=== PATIENT | female | born 1945 | race Caucasian/White ===

== ENCOUNTER 2018-09-16 17:43 | Emergency (ER) | payer OTHER, MEDICARE ==
[2018-09-16 17:50] VITALS: PULSE 84; TEMP 97.4; BMI 25.2
--- NOTE | 2018-09-16 18:05 | PDOC ---
History of Present Illness - General Chief Complaint: Rectal Bleed Stated Complaint: BLOOD IN STOOL Time Seen by Provider: 09/16/18 18:02 History Source: Patient Exam Limitations: No Limitations - History of Present Illness Initial Comments: 09/16/18 18:02 72 year old female with PMH HTN, hypothyroidism, atrial fibrillation (on Xarelto ), hemorrhoids presented to ED for blood in urine. She stated she had one episode today. She denied fever, chills, nausea, vomiting, diarrhea, blood in stool, chest pain, shortness of breath, vaginal bleeding. Past History - Past Medical History Allergies/Adverse Reactions: Allergies Allergy/AdvReac Type Severity Reaction Status Date / Time kiwi Allergy Verified 09/16/18 17:44 UNCODED ALLERGY SELECTION Allergy Swelling Verified 09/16/18 17:44 NOVACAINE Allergy Severe Uncoded 09/16/18 17:44 Home Medications: Ambulatory Orders Levothyroxine [Synthroid -] 25 mcg PO ACBK #0 tablet 03/28/12 Pantoprazole Sodium [Protonix -] 40 mg PO DAILY #0 tablet.ec 03/28/12 Potassium Chloride [K-Dur -] 20 meq PO DAILY #0 tablet.er 03/28/12 Ramipril [Altace] 2.5 mg PO DAILY #0 capsule 03/28/12 Rivaroxaban [Xarelto -] 20 mg PO DAILY #0 tablet 03/28/12 Digoxin [Lanoxin -] 0.125 mg PO DAILY 09/16/18 Metoprolol Succinate [Toprol XL -] 50 mg PO DAILY 09/16/18 Cardiac Disorders: Yes (AFIB) COPD: No HTN: Yes Hypercholesterolemia: Yes Thyroid Disease: Yes - Suicide/Smoking/Psychosocial Hx Smoking Status: No Smoking History: Never smoked Years of Tobacco Use: 20 Have you smoked in the past 12 months: No Number of Cigarettes Smoked Daily: 1 Hx Alcohol Use: Yes Drug/Substance Use Hx: No Substance Use Type: None Hx Substance Use Treatment: No Review of Systems - Review of Systems Able to Perform ROS?: Yes Comments:: 09/16/18 18:04 General: denied fever, chills, night sweats, generalized weakness. HEENT: denied sore throat, rhinorrhea, ear pain. Heart: denied chest pain, palpitations, syncope, lower extremity swelling, diaphoresis. Respiratory: denied shortness of breath, cough, sputum production, hemoptysis. Abdomen: denied abdominal pain, nausea, vomiting, diarrhea, constipation, blood in stool. : admitted to hematuria. denied dysuria, increased urinary frequency, urinary incontinence, flank pain, vaginal bleeding, vaginal discharge. Back: denied back pain. Musculoskeletal: denied joint pain, muscle pain, joint swelling. Neurological: denied headache, dizziness, numbness, tingling, weakness. Skin: denied rash, laceration, abrasion. *Physical Exam - Vital Signs Last Vital Signs Temp Pulse Resp BP Pulse Ox 97.4 F L 84 18 187/100 H 100 09/16/18 17:44 09/16/18 17:44 09/16/18 17:44 09/16/18 17:44 09/16/18 17:44 - Physical Exam Comments: 09/16/18 18:04 Constitutional: Well-nourished, Well-developed, appearing stated age. HEENT: head is normocephalic, atraumatic. EOMI. PERRLA. Neck: supple. Full ROM. Heart: irregularly irregular. no murmurs, rubs or gallops. Lungs: clear to auscultation bilaterally. no crackles, rhonchi or wheezing. no stridor. Abdomen: soft, nontender. normal bowel sounds. no rebound, guarding, masses. Extremities: Peripheral pulses intact. No lower extremity edema. Neurological: CN 2-12 grossly intact. Moves all four extremities. Psych: awake, alert, oriented x3. Follows commands. Answers questions appropriately. Pelvic: uterine prolapse. no blood in vaginal vault. no cervical lesions. Rectal: external hemorrhoids. Moderate Sedation - Procedure Monitoring Vital Signs: Procedure Monitoring Vital Signs Temperature 97.4 F L 09/16/18 17:44 Pulse Rate 84 09/16/18 17:44 Respiratory Rate 18 09/16/18 17:44 Blood Pressure 187/100 H 09/16/18 17:44 O2 Sat by Pulse Oximetry (%) 100 09/16/18 17:44 ED Treatment Course - LABORATORY CBC & Chemistry Diagram: 09/16/18 18:27 09/16/18 18:27 Medical Decision Making - Medical Decision Making 09/16/18 18:04 72 year old female with above PMH presented to ED for 1 episode of nonpainful hematuria. Initial Vital Signs Temp Pulse Resp BP Pulse Ox 97.4 F L 84 18 187/100 H 100 09/16/18 17:44 12 17:44 09/16/18 17:44 09/16/18 17:44 09/16/18 17:44 Afebrile. No tachycardia. No tachypnea. Hypertensive. - Pt is anxious No hypoxia on room air 09/16/18 19:01 CBC WBC 8.8 K/mm3 (4.0-10.8) 09/16/18 18: RBC 4.82 M/mm3 (3.60-5.2) 09/16/18 18: Hgb 15.0 GM/dl (10.7-15.3) 09/16/18: Hct 45.7 % (32.4-45.2) H 09/16/18: MCV 94.7 fl (80-96) 09/16/18: MCH 31.1 pg (25.7-33.7) 09/16/18: MCHC 32.9 g/dl (32.0-36.0) 09/16/18: RDW 12.9 % (11.6-15.6) 09/16/18: Plt Count 306 K/MM3 (134-434) 09/16/18 MPV 8.1 fl (7.5-11.1) 09/16/18: Absolute Neuts (auto) 6.0 K/mm3 09/16/18 Neutrophils % 68.0 % (42.8-82.8) 09/16/18: Lymphocytes % 18.4 % (8-40) 09/16/18: Monocytes % 5.6 % (3.8-10.2) 09/16/18: Eosinophils % 6.1 % (0-4.5) H 09/16/18: Basophils % 1.9 % (0-2.0) 09/16/18: No anemia. No leukocytosis. Urine Test Results Urine Color Yellow 09/16/18: Urine Appearance Slightly 09/16/18: Urine pH 7.0 (4.5-8) 09/16/18: Ur Specific [place] 1.020 (1.010-1.035) 09/16/18 18:27 Urine Protein Negative (NEGATIVE) 09/16/18 18: Urine Glucose (UA) Negative (NEGATIVE) 09/16/18 18: Urine Ketones Negative (NEGATIVE) 09/16/18 18: Urine Blood 3+ (NEGATIVE) H 09/16/18 18:27 Urine Nitrite Negative (NEGATIVE) 09/16/18 18: Urine Bilirubin Negative (NEGATIVE) 09/16/18 18: Ur Leukocyte Esterase Trace (NEGATIVE) H 09/16/18 18: Urine RBC 20-40 /hpf (0-3) 09/16/18 18: Urine WBC 2-5 (0-5) 09/16/18 18: Ur Epithelial Cells 1+ /HPF 09/16/18 18: Urine Bacteria 1+ /hpf (NEGATIVE) 09/16/18 18: WBC 2-5. Stool positive for blood. 09/16/18 19:06 Pt signed out to Dr. Bonner. *DC/Admit/Observation/Transfer Diagnosis at time of Disposition: Hematuria - Discharge Dispostion Disposition: HOME Condition at time of disposition: Stable - Referrals Referrals: Jh Elizalde MD [Primary Care Provider] - Call tomorrow - Patient Instructions Printed Discharge Instructions: Blood in Urine Additional Instructions: continue medications as prescribed call Dr Elizalde's office in AM to arrange followup as soon as possible return to ER if you have any abnormal bleeding or bruising - Post Discharge Activity
--- NOTE | 2018-09-16 18:25 | PDOC ---
Attending Attestation - Resident Resident Name: Lanie Hardin - ED Attending Attestation I have performed the following: I have examined & evaluated the patient, The case was reviewed & discussed with the resident, I agree w/resident's findings & plan, Exceptions are as noted <Jameson Fritz - Last Filed: 09/16/18 18:25> - HPI HPI: 09/16/18 19:07 The patient is a 72 year old female, with a significant past medical history of HTN, hypothyroidism, atrial fibrillation (on Xarelto), hemorrhoids , who presents to the emergency department with, one episode of hematuria. She denies recent dysuria, frequency, or urgency. She denies recent fevers, chills, headache or dizziness. She denies recent nausea, vomit, diarrhea or constipation. She denies recent chest pain or shortness of breath. Allergies: Novocaine Primary Care Physician: Dr. Elizalde - Physicial Exam PE: 09/16/18 19:13 GENERAL: Well developed, well nourished. Awake and alert. No acute distress. NECK: Supple. Full ROM. No JVD. Carotid pulses 2+ and symmetric, without bruits. No thyromegaly. No lymphadenopathy. CARDIOVASCULAR: Irregularly irregular. No murmurs, rubs, or gallops. Distal pulses are 2+ and symmetric. PULMONARY: No evidence of respiratory distress. Lungs clear to auscultation bilaterally. No wheezing, rales or rhonchi. ABDOMINAL: Flat. Soft. Non-tender. Non-distended. No rebound or guarding. No organomegaly. Normoactive bowel sounds. MUSCULOSKELETAL No bony deformities or tenderness. No CVA tenderness. EXTREMITIES: No cyanosis. No clubbing. No edema. No calf tenderness. SKIN: Warm and dry. Normal capillary refill. No rashes. No jaundice. NEUROLOGICAL: Alert, awake, appropriate. Cranial nerves 2-12 intact. No deficits to light touch and temperature in face, upper extremities and lower extremities. No motor deficits in the in face, upper extremities and lower extremities. Normal speech. PSYCHIATRIC: Cooperative. Good eye contact. Appropriate mood and affect. <Ivan Mcdonnell - Last Filed: 09/16/18 19:14> Attestations - Attestations 09/16/18 19:08 Documentation prepared by Ivan Mcdonnell, acting as biomedical instrument technician for Jameson Alvarez MD. <Ivan Mcdonnell - Last Filed: 09/16/18 19:14>
[2018-09-16 18:40] LABS: URINE APPEARANCE Slightly; URINE BILIRUBIN Negative (NEGATIVE); URINE COLOR Yellow; URINE GLUCOSE (UA) Negative (NEGATIVE); URINE KETONE Negative (NEGATIVE); URINE LEUK ESTERASE TRACE (NEGATIVE); URINE NITRITE Negative (NEGATIVE); URINE PROTEIN Negative (NEGATIVE); URINE UROBILINOGEN 0.2 (0.2-1.0)
[2018-09-16 18:43] LABS: BASO % 1.9 % (0-2.0); EOS % 6.1 % (0-4.5); HEMATOCRIT 45.7 % (32.4-45.2); LYMPH % 18.4 % (8-40); MCH 31.1 pg (25.7-33.7); MCHC 32.9 g/dl (32.0-36.0); MEAN CELL VOLUME 94.7 fl (80-96); MEAN PLT VOLUME 8.1 fl (7.5-11.1); MONO % 5.6 % (3.8-10.2); PLATELET COUNT 306 K/MM3 (134-434); RBC 4.82 M/mm3 (3.60-5.2); RDW 12.9 % (11.6-15.6); WHITE BLOOD COUNT 8.8 K/mm3 (4.0-10.8)
[2018-09-16 18:48] LABS: EPI CELLS 1+ /HPF; URINE BACTERIA 1+ /hpf (NEGATIVE); URINE RBC 20-40 /hpf (0-3)
[2018-09-16 18:56] LABS: ACTIVATED PTT 38.3 SECONDS (25.2-36.5)
[2018-09-16 19:01] LABS: INR 1.83 (0.82-1.09); PROTHROMBIN TIME (PATIENT) 20.3 SEC (10.2-13.0)
[2018-09-16 19:02] LABS: ANION GAP 8 MMOL/L (8-16); BLOOD UREA NITROGEN 15 mg/dl (7-18); CALCIUM 8.9 mg/dl (8.4-10.2); CHLORIDE 103 mmol/L (98-107); CO2 25 mmol/L (22-28); CREATININE 0.8 mg/dl (0.6-1.3); GLUCOSE,RANDOM 149 mg/dl (74-106); POTASSIUM 3.7 mmol/L (3.5-5.1); SODIUM 136 mmol/L (136-145)
--- NOTE | 2018-09-16 19:21 | PDOC ---
*Physical Exam - Vital Signs Last Vital Signs Temp Pulse Resp BP Pulse Ox 97.4 F L 84 18 187/100 H 100 09/16/18 17:44 09/16/18 17:44 09/16/18 17:44 09/16/18 17:44 09/16/18 17:44 ED Treatment Course - LABORATORY CBC & Chemistry Diagram: 09/16/18 18:27 09/16/18 18:27 - ADDITIONAL ORDERS Additional order review: Laboratory Results 09/16/18 09/16/18 09/16/18 18:39 18:27 18:27 PT with INR INR PTT (Actin FS) Sodium 136 Potassium 3.7 Chloride 103 Carbon Dioxide 25 Anion Gap 8 BUN 15 Creatinine 0.8 Creat Clearance w eGFR > 60 Random Glucose 149 H D Calcium 8.9 Urine Color Yellow Urine Appearance Slightly Urine pH 7.0 Ur Specific [place] 1.020 Urine Protein Negative Urine Glucose (UA) Negative Urine Ketones Negative Urine Blood 3+ H Urine Nitrite Negative Urine Bilirubin Negative Urine Urobilinogen 0.2 Ur Leukocyte Esterase Trace H Urine RBC 20-40 Urine WBC 2-5 Ur Epithelial Cells 1+ Urine Bacteria 1+ Stool Occult Blood Positive 09/16/18 18:27 PT with INR 20.3 H INR 1.83 H PTT (Actin FS) 38.3 H Sodium Potassium Chloride Carbon Dioxide Anion Gap BUN Creatinine Creat Clearance w eGFR Random Glucose Calcium Urine Color Urine Appearance Urine pH Ur Specific [place] Urine Protein Urine Glucose (UA) Urine Ketones Urine Blood Urine Nitrite Urine Bilirubin Urine Urobilinogen Ur Leukocyte Esterase Urine RBC Urine WBC Ur Epithelial Cells Urine Bacteria Stool Occult Blood 09/16/18 18:27 RBC 4.82 MCV 94.7 MCHC 32.9 RDW 12.9 MPV 8.1 Neutrophils % 68.0 Lymphocytes % 18.4 Monocytes % 5.6 Eosinophils % 6.1 H Basophils % 1.9 Progress Note - Progress Note Progress Note: Care of this patient received from Steve Laboratory values reviewed: INR slightly elevated 1.83. Otherwise, no significant abnormalities seen. Results discussed with the patient. She should call 's office in the morning to arrange follow-up with the next 48 hours. Otherwise, she should take her medications as prescribed. She should return to the emergency room if she has any unusual bleeding/bruising. *DC/Admit/Observation/Transfer Diagnosis at time of Disposition: Hematuria Qualifiers: Hematuria type: gross Qualified Code(s): R31.0 - Gross hematuria - Discharge Dispostion Disposition: HOME Condition at time of disposition: Stable - Referrals Referrals: Jh Elizalde MD [Primary Care Provider] - Call tomorrow - Patient Instructions Printed Discharge Instructions: Blood in Urine Additional Instructions: continue medications as prescribed call Dr Elizalde's office in AM to arrange followup as soon as possible return to ER if you have any abnormal bleeding or bruising - Post Discharge Activity
[2018-09-16 19:49] VITALS: BP 154/90
== END 2018-09-16 19:52 | disposition home or self-care (01) ==
LOC: FER 17:43
DX: R31.9 Hematuria, unspecified (principal); I48.91 Unspecified atrial fibrillation; Z79.01 Long term (current) use of anticoagulants; I10 Essential (primary) hypertension; K64.9 Unspecified hemorrhoids
CPT/HCPCS: 36415; 80048; 81003; 81015; 82272; 85025; 85610; 85730; 87086; 99283-25

== ENCOUNTER 2018-12-30 06:33 | Day surgery (SDC) | payer OTHER, MEDICARE ==
[2018-12-29 14:24] VITALS: BMI 25.2
[2018-12-30 08:40] VITALS: TEMP 97.3
[2018-12-30 09:26] VITALS: BP 135/69; PULSE 92
--- NOTE | 2018-12-31 16:55 | PATH ---
Surgical Pathology Report Patient Name: BRITTNI LI [facility]. Rec. #: [id number] /Age/Gender: 1945 (Age: 73) / F Account: [id number] Location: [facility]-ENDOSCOPY Taken: 12/30/2018 Received: 12/30/2018 Reported: 12/31/2018 Physicians: Zaire Oleary M.D. Specimen(s) Received A: RECTAL POLYP B: PROXIMAL TRANSVERSE COLON C: DISTAL TRANSVERSE COLON POLYP D: DESCENDING COLON POLYP Clinical History Screening Postoperative diagnosis: Colon polyps, diverticulosis Final Diagnosis A. RECTAL POLYP, BIOPSY: HYPERPLASTIC POLYP. B. PROXIMAL TRANSVERSE COLON, BIOPSY: TUBULAR ADENOMA. C. DISTAL TRANSVERSE COLON, POLYP, BIOPSY: HYPERPLASTIC POLYP. D. DESCENDING COLON, POLYP, POLYPECTOMY: TUBULOVILLOUS ADENOMA. NO HIGH GRADE DYSPLASIA IDENTIFIED. Electronically Signed Ayesha Pozo M.D. Gross Description A. Received in formalin, labeled "rectal polyp" is a jones, irregular portion of soft tissue measuring 0.3 cm. in greatest dimension. The specimen is submitted in toto in one cassette. B. Received in formalin, labeled "proximal transverse colon" are 4 jones, irregular portions of soft tissue measuring 0.1-0.5 cm. in greatest dimension. The specimens are submitted in toto in one cassette. C. Received in formalin, labeled "distal transverse colon polyp" are 4 jones, irregular portions of soft tissue measuring 0.1-0.4 cm. in greatest dimension. The specimens are submitted in toto in one cassette. D. Received in formalin, labeled "descending colon polyp" is a jones, irregular portion of soft tissue measuring 0.8 cm. in greatest dimension. The base of the polyp is inked in blue. The specimen is submitted in toto in one cassette as follows: 1-serially sectioned polyp. MLSZ/12/30/2018 sanml/12/30/2018
== END 2018-12-30 09:23 | disposition home or self-care (01) ==
LOC: JASU-ENDO 06:33
PROVIDERS: ATTEND Internal Medicine Gastroenterology
PROC: 0DBP8ZX Excision of Rectum, Via Natural or Artificial Opening Endoscopic, Diagnostic (ICD-10-PCS; 2018-12-30)
PROC: 0DBL8ZX Excision of Transverse Colon, Via Natural or Artificial Opening Endoscopic, Diagnostic (ICD-10-PCS; 2018-12-30)
PROC: 0DBL8ZX Excision of Transverse Colon, Via Natural or Artificial Opening Endoscopic, Diagnostic (ICD-10-PCS; principal; 2018-12-30 08:00)
DX: Z12.11 Encounter for screening for malignant neoplasm of colon (principal); D12.3 Benign neoplasm of transverse colon; D12.4 Benign neoplasm of descending colon; K62.1 Rectal polyp; K63.5 Polyp of colon; K57.30 Diverticulosis of large intestine without perforation or abscess without bleeding; K64.8 Other hemorrhoids
CPT/HCPCS: 88305-TC